=== PATIENT | male | born 1985 | race Caucasian/White ===

== ENCOUNTER 2016-08-21 16:28 | Emergency (ER) | payer OTHER ==
[~2016-08-21] VITALS: Ht 172.7 cm; Wt 67.0 kg
[~2016-08-21 16:28] MED LIST: ULTRAM50 MG PO
[2016-08-21] MEDS ORDERED: MOTRIN800 MG PO (18:05)
[2016-08-21] MEDS ORDERED: FLEXERIL10 MG PO (18:05)
[2016-08-21 18:32] VITALS: BP 106/57
== END 2016-08-21 18:34 | disposition home or self-care (01) ==
LOC: EME 16:28
DX: S16.1XXA Strain of muscle, fascia and tendon at neck level, initial encounter (principal); M62.830 Muscle spasm of back; V49.50XA Passenger injured in collision with unspecified motor vehicles in traffic accident, initial encounter
CPT/HCPCS: 99281; 99283

== ENCOUNTER 2016-09-16 09:43 | Emergency (ER) | payer SELFPAY ==
[~2016-09-16] VITALS: Ht 172.7 cm; Wt 65.5 kg
[~2016-09-16 09:43] MED LIST changes: +FLEXERIL10 MG PO; +MOTRIN800 MG PO
[2016-09-16] MEDS ORDERED: TESSALON200 MG PO (10:49)
[2016-09-16 11:25] LABS: INFLUENZA A VIRAL ANTIGEN NEGATIVE; INFLUENZA B VIRAL ANTIGEN NEGATIVE
[2016-09-16 11:48] VITALS: BP 103/69
== END 2016-09-16 11:49 | disposition home or self-care (01) ==
LOC: EME 09:43
PROVIDERS: Physician Assistant
DX: B34.9 Viral infection, unspecified (principal); R05 Cough; J02.9 Acute pharyngitis, unspecified; Z87.891 Personal history of nicotine dependence
CPT/HCPCS: 71020; 87502; 99281; 99284

== ENCOUNTER 2016-10-20 15:32 | Emergency (ER) | payer SELFPAY ==
[~2016-10-20] VITALS: Ht 172.7 cm; Wt 64.4 kg
[~2016-10-20 15:32] MED LIST changes: +TESSALON200 MG PO
[2016-10-20 15:50] LABS: POINT-OF-CARE METER ID UU13113778
[2016-10-20 17:56] VITALS: BP 110/65
== END 2016-10-20 17:57 | disposition home or self-care (01) ==
LOC: EME 15:32
PROVIDERS: Nurse Practitioner Family
DX: R55 Syncope and collapse (principal)
CPT/HCPCS: 70450; 71020; 80048; 81003; 82948; 84484; 85027; 93005; 99281; 99284

== ENCOUNTER 2017-07-17 19:29 | Emergency (ER) | payer SELFPAY ==
[~2017-07-17] VITALS: Ht 170.2 cm; Wt 65.0 kg
[2017-07-17 19:58] VITALS: BP 100/88
[2017-07-18] MEDS ORDERED: ZITHROMAX250 MG PO (20:27)
[2017-07-18] MEDS ORDERED: PROAIR HFA8.5 GM IH (20:27)
[2017-07-18] MEDS ORDERED: PREDNISONE20 MG PO (20:28)
== END 2017-07-17 21:45 | disposition home or self-care (01) ==
LOC: EME 19:29
PROVIDERS: Emergency Medicine
DX: J45.901 Unspecified asthma with (acute) exacerbation (principal)
CPT/HCPCS: 71020; 80048; 85027; 87502; 87651 90; 94640; 99281; 99284; J7512

== ENCOUNTER 2017-07-18 17:49 | Emergency (ER) | payer SELFPAY ==
[~2017-07-18] VITALS: Ht 172.7 cm; Wt 66.2 kg
[2017-07-18] MEDS ORDERED: PROAIR HFA8.5 GM IH (20:27)
[2017-07-18] MEDS ORDERED: ZITHROMAX250 MG PO (20:27)
[2017-07-18] MEDS ORDERED: PREDNISONE20 MG PO (20:28)
[2017-07-18 20:35] VITALS: BP 109/70
== END 2017-07-18 20:39 | disposition home or self-care (01) ==
LOC: EME 17:49
DX: J40 Bronchitis, not specified as acute or chronic (principal)
CPT/HCPCS: 94640; 99281; 99283; J7512

== ENCOUNTER 2017-08-22 17:07 | Emergency (ER) | payer SELFPAY ==
[~2017-08-22] VITALS: Ht 172.7 cm; Wt 65.8 kg
[~2017-08-22 17:07] MED LIST changes: +PREDNISONE20 MG PO; +PROAIR HFA8.5 GM IH; +ZITHROMAX250 MG PO
[2017-08-22 18:03] VITALS: BP 110/76
== END 2017-08-22 17:08 | disposition left against medical advice (07) ==
LOC: EME 17:07
DX: R11.0 Nausea (principal); Z53.21 Procedure and treatment not carried out due to patient leaving prior to being seen by health care provider
CPT/HCPCS: 93005